=== PATIENT | female | born 1980 | race Caucasian/White ===

== ENCOUNTER 2017-06-11 09:26 | Emergency (ER) | payer OTHER ==
[2017-06-11 10:10] LABS: BASOPHIL % 0.3 % (0-2); PLATELET COUNT 131 x10^3mcL (130-400)
[2017-06-11 10:13] LABS: RED CELL DISTRIBUTION WIDTH 14.7 % (11.5-14.5)
[2017-06-11 10:18] LABS: CALCIUM 8.5 mg/dL (8.5-10.1); CARBON DIOXIDE 25.7 mmol/L (21-32); CHLORIDE SERUM 104 mmol/L (98-107); CREATININE SERUM 0.6 mg/dL (0.6-1.0); GFR1 > 60 mL/min; GLUCOSE SERUM 121 mg/dL (74-106); POTASSIUM SERUM 4.3 mmol/L (3.5-5.1); SODIUM SERUM 139 mmol/L (136-145)
[2017-06-11 11:47] VITALS: BP 116/89
== END 2017-06-11 11:47 | disposition home or self-care (01) ==
LOC: ED 09:26
PROVIDERS: Emergency Medicine
DX: M79.1 Myalgia (principal); D70.9 Neutropenia, unspecified; R78.81 Bacteremia; E11.9 Type 2 diabetes mellitus without complications
CPT/HCPCS: 36415; J0696; J1885

== ENCOUNTER 2018-05-28 08:36 | Emergency (ER) | payer OTHER ==
[~2018-05-28] VITALS: Ht 170.2 cm; Wt 104.3 kg
[2018-05-28 08:38] VITALS: BP 132/75; Ht 170.2 cm; Wt 104.3 kg
== END 2018-05-28 09:00 | disposition home or self-care (01) ==
LOC: ED 08:36
DX: S00.412A Abrasion of left ear, initial encounter (principal); X58.XXXA Exposure to other specified factors, initial encounter; Y93.89 Activity, other specified; Y92.89 Other specified places as the place of occurrence of the external cause; Y99.8 Other external cause status; E11.9 Type 2 diabetes mellitus without complications; Z90.710 Acquired absence of both cervix and uterus